=== PATIENT | male | born 1965 | race Caucasian/White ===

== ENCOUNTER 2017-06-04 18:33 | Emergency (ER) | payer OTHER, MEDICAID ==
--- NOTE | 2017-06-04 19:28 | UC ---
Shoulder Pain HPI - History of Current Complaint Chief Complaint: UCUpperExtremity Stated Complaint: RIGHT SHOULDER PAIN Time Seen by Provider: 06/04/17 19:18 - Allergies/Home Medications Allergies/Adverse Reactions: Allergies Allergy/AdvReac Type Severity Reaction Status Date / Time No Known Allergies Allergy Verified 06/04/17 18:52 Home Medications: Home Medications NK [No Home Medications Reported] 06/04/17 [History Confirmed 06/04/17] PMH/Surg Hx/FS Hx/Imm Hx - Surgical History Surgical History: Yes Surgery Procedure, Year, and Place: cardiac stent 10/2015 - Social History Alcohol Use: None Substance Use Type: None Smoking Status (MU): Light Every Day Tobacco Smoker Type: Cigarettes Amount Used/How Often: < 1/2 PPD Physical Exam Vital Signs: Initial Vital Signs Temp 98.9 F 06/04/17 18:53 Pulse 56 06/04/17 18:53 Resp 16 06/04/17 18:53 BP 152/92 06/04/17 18:53 Pulse Ox 100 06/04/17 18:53
--- NOTE | 2017-06-04 19:51 | RAD ---
HISTORY: Right shoulder pain, decreased range of motion COMPARISONS: None VIEWS: 4, Frontal internal rotation, external rotation, outlet, and axillary views of the right shoulder FINDINGS: BONE DENSITY: Normal. BONES: There is no displaced fracture. JOINTS: There is no arthropathy. ALIGNMENT: There is no dislocation. SOFT TISSUES: There is soft tissue calcification along the greater tuberosity. OTHER FINDINGS: None. IMPRESSION: SOFT TISSUE CALCIFICATIONS SUGGESTIVE OF A CALCIFIC TENDINOPATHY. NO ACUTE OSSEOUS INJURY. IF SYMPTOMS PERSIST, RECOMMEND REPEAT IMAGING
[2017-06-04] MEDS ORDERED: HYDROcodone/ACETAMIN 5-325 MG* 1 TAB PO ONE (19:54)
== END 2017-06-04 20:12 | disposition home or self-care (01) ==
LOC: UCCORT 18:33
DX: M75.31 Calcific tendinitis of right shoulder (principal); I10 Essential (primary) hypertension
CPT/HCPCS: 99202; G0463